=== PATIENT | female | born 1975 | race Caucasian/White ===

== ENCOUNTER 2018-03-22 10:35 | Outpatient (CLI) | payer BC | END 2018-03-22 10:36 | disposition home or self-care (01) | LOC: BICMAMMO 10:35 | PROVIDERS: ATTEND Obstetrics & Gynecology | DX: Z12.31 Encounter for screening mammogram for malignant neoplasm of breast (principal); Z80.3 Family history of malignant neoplasm of breast | CPT/HCPCS: 77063; 77067 ==

== ENCOUNTER 2020-04-20 07:18 | Outpatient (CLI) | payer BC, OTHER ==
[2020-04-20 18:03] LABS: BHCG - Serum Negative (NEGATIVE); Pregs Control Background? CLEAR/WHITE (CLR/WHITE); Pregs Control Bar Appear? YES (CONTROL BAR)
[2020-04-21 14:54] LABS: SARS-CoV-2 MS2 Positive; SARS-CoV-2 N Gene Negative; SARS-CoV-2 S Gene Negative; SARS-CoV-2 by NAA Not Detected (NotDetected); SARS-CoV-2 orf1ab Negative
== END 2020-04-20 07:19 | disposition home or self-care (01) ==
LOC: LABBT 07:18
PROVIDERS: ATTEND Otolaryngology Plastic Surgery within the Head & Neck
DX: Z01.812 Encounter for preprocedural laboratory examination (principal); Z20.828 Contact with and (suspected) exposure to other viral communicable diseases; J32.9 Chronic sinusitis, unspecified; J32.0 Chronic maxillary sinusitis; J32.3 Chronic sphenoidal sinusitis; J32.2 Chronic ethmoidal sinusitis; J32.1 Chronic frontal sinusitis; J34.3 Hypertrophy of nasal turbinates; J33.9 Nasal polyp, unspecified
CPT/HCPCS: 84703; 85014; 87635; U0003

== ENCOUNTER 2020-04-25 06:02 | Day surgery (SDC) | payer BC ==
[2020-04-23 10:00] VITALS: BMI 21.6
[2020-04-25] MEDS ORDERED: AFRIN NASAL MIST 15 ML BOT ONE ×2 (06:26→06:46)
[2020-04-25] MEDS ORDERED: Lidocaine 1% w/Epinephrine 1:100K 20 ML VIAL ONE (06:46)
[2020-04-25] MEDS ORDERED: Fentanyl 100 MCG/2 ML VIAL ONE ×3 (06:55→09:03)
[2020-04-25] MEDS ORDERED: Dexmedetomidine 200 MCG/2 ML VIAL ONE (06:55)
[2020-04-25] MEDS ORDERED: Midazolam HCl 2 mg/2 ml Vial ONE (07:22)
[2020-04-25] MEDS ORDERED: cefTRIAXone\\ROCEPHIN 1 GM VIAL ONE (09:00)
[2020-04-25] MEDS ORDERED: Sodium Chloride 0.9% 100 ML ONE (09:01)
[2020-04-25] MEDS ORDERED: Ibuprofen 800 MG TAB PO SCH (10:15)
[2020-04-25] MEDS ORDERED: PROPOFOL 200 MG/20 ML VIAL ONE (11:05)
[2020-04-25] MEDS ORDERED: Rocuronium Bromide 10 MG/ML (10ML VIAL) ONE (11:05)
[2020-04-25] MEDS ORDERED: Glycopyrrolate 0.2 MG/ML 5 ML SYRINGE ONE (11:05)
[2020-04-25] MEDS ORDERED: Ondansetron PF 4 MG/2 ML Vial ONE (11:05)
[2020-04-25] MEDS ORDERED: Succinylcholine Chloride 20 MG/ML 10 ml SYRINGE FS ONE (11:05)
[2020-04-25] MEDS ORDERED: Dexamethasone 20 MG/5 ML VIAL ONE (11:05)
[2020-04-25] MEDS ORDERED: Lidocaine 1% PF 5 ML VIAL ONE (11:05)
--- NOTE | 2020-04-26 12:47 | OP ---
DATE OF PROCEDURE: 04/25/2020 PREOPERATIVE DIAGNOSES: 1. Chronic pansinusitis. 2. Nasal polyposis. 3. Bilateral inferior turbinate hypertrophy. 4. Nasal obstruction. POSTOPERATIVE DIAGNOSES: 1. Chronic pansinusitis. 2. Nasal polyposis. 3. Bilateral inferior turbinate hypertrophy. 4. Nasal obstruction. PROCEDURES PERFORMED: 1. Bilateral endoscopic sinus surgery, total ethmoidectomies and sphenoidotomies including removal of tissue. 2. Bilateral endoscopic sinus surgery, maxillary antrostomies with removal of tissue. 3. Bilateral endoscopic sinus surgery, frontal sinus exploration. 4. Bilateral inferior turbinate submucosal resection. 5. [employer] image-guided surgery. ESTIMATED BLOOD LOSS: 50 mL. COMPLICATIONS: None. ANESTHESIA: GETA. DESCRIPTION OF PROCEDURE: The patient was taken to the operating room and placed supine on the table. General endotracheal anesthesia was obtained by the Anesthesia Staff. Tube was secured in the left lower lip. The patient was placed in a beach-chair position, and the [employer] image-guided cranial based surgery system was set up and calibrated. It was noted to be within 1 mm of accuracy. Following this, the patient was prepped and draped for standard nasal procedures, and Afrin pledgets were then removed from the nasal cavity. The 0-degree endoscope was used to guide a 27-gauge needle with 1% lidocaine and 1:100,000 epinephrine to be injected into the inferior turbinates, middle turbinates, and lateral nasal alexandre bilaterally. Following this, the middle turbinates were gently medialized with a [place]ster elevator. The uncinate process was then anteriorly fractured using a ball-ended probe bilaterally and the uncinate process was removed using the 0-degree microdebrider, curved microdebrider, and up-biting Blakesley forceps. Following this, the natural maxillary sinus ostia, which was completely swollen and obstructed due to inflammatory changes, polyps, and purulence was identified using a ball-ended probe bilaterally. Using the curved microdebrider blade and straight Blakesley forceps, maxillary ostia was widened bilaterally. Nasal polyps were removed from the inside of the maxillary sinus as well as significant amount of purulent debris. Following this, the ethmoidal bulla was identified and was punctured on its medial and inferior aspect using the 0-degree microdebrider blade, and ethmoidal bulla was removed bilaterally. Following this, the grand lamella was identified and was punctured into the posterior ethmoidal cells. Working from posterior to anterior, ethmoidal cells were opened in a mucosal sparing technique. Following this, nasal polyps and purulent debris were removed from the posterior ethmoidal cells and anterior ethmoidal cells using up-biting Blakesley forceps and a 0-degree microdebrider. Following this, the anterior wall of the sphenoid sinus was identified under image-guided surgical techniques and a sphenoidotomy was created using the 0-degree microdebrider under image guidance. The sphenoidotomies were then widened in a medial and inferior direction bilaterally using 0-degree microdebrider. Nasal polyps and purulence were removed from the sphenoid sinuses bilaterally. Following this, a 45-degree endoscope along with the 40-degree microdebrider blade under image guidance surveillance was used to identify the frontal sinus recess and frontal sinus ostia bilaterally. This area was opened using the 40-degree microdebrider blade by removing tissue. Following this, inferior turbinates were punctured on the anterior and inferior aspect, and submucosal resection was performed of the anterior and inferior portions of the inferior turbinates bilaterally. Following this, the nasal cavity was irrigated and a curved suction along with a 20 mL syringe was used to irrigate the maxillary sinuses. Upon irrigation of the right maxillary sinus it was noted that there was some mild periorbital infiltration of the irrigation. Gentle massage released the pressure. The image-guided system and 0-degree and 45-degree endoscope were then used to thoroughly inspect the lamina papyracea on this right side. There were no obvious defects. There was no bleeding. There was no evidence of orbital hemorrhage. It was thought that the bone of the maxillary sinus was markedly atrophic and then secondary to the chronic inflammation and polyps that were present. The patient was awakened from anesthesia and taken to the recovery room. Vision was intact fully bilaterally, and there was no continuation or progression of the periorbital . The patient tolerated the procedure well. Job ID: [id number]
== END 2020-04-25 11:05 | disposition home or self-care (01) ==
LOC: SDC 06:02
PROVIDERS: ATTEND Otolaryngology Plastic Surgery within the Head & Neck
PROC: 09BV8ZZ Excision of Left Ethmoid Sinus, Via Natural or Artificial Opening Endoscopic (ICD-10-PCS; principal; 2020-04-25)
PROC: 099R8ZZ Drainage of Left Maxillary Sinus, Via Natural or Artificial Opening Endoscopic (ICD-10-PCS; principal; 2020-04-25)
PROC: 099Q8ZZ Drainage of Right Maxillary Sinus, Via Natural or Artificial Opening Endoscopic (ICD-10-PCS; principal; 2020-04-25)
PROC: 09BS8ZZ Excision of Right Frontal Sinus, Via Natural or Artificial Opening Endoscopic (ICD-10-PCS; principal; 2020-04-25)
PROC: 09BU8ZZ Excision of Right Ethmoid Sinus, Via Natural or Artificial Opening Endoscopic (ICD-10-PCS; principal; 2020-04-25)
PROC: 09BT8ZZ Excision of Left Frontal Sinus, Via Natural or Artificial Opening Endoscopic (ICD-10-PCS; principal; 2020-04-25)
PROC: 09BL8ZZ Excision of Nasal Turbinate, Via Natural or Artificial Opening Endoscopic (ICD-10-PCS; principal; 2020-04-25)
PROC: 09CX8ZZ Extirpation of Matter from Left Sphenoid Sinus, Via Natural or Artificial Opening Endoscopic (ICD-10-PCS; principal; 2020-04-25)
PROC: 09CW8ZZ Extirpation of Matter from Right Sphenoid Sinus, Via Natural or Artificial Opening Endoscopic (ICD-10-PCS; principal; 2020-04-25)
PROC: 8E09XBZ Computer Assisted Procedure of Head and Neck Region (ICD-10-PCS; principal; 2020-04-25)
DX: J32.4 Chronic pansinusitis (principal); J34.3 Hypertrophy of nasal turbinates; J33.0 Polyp of nasal cavity; J34.89 Other specified disorders of nose and nasal sinuses; J33.9 Nasal polyp, unspecified; J30.9 Allergic rhinitis, unspecified; E03.9 Hypothyroidism, unspecified; Z79.899 Other long term (current) drug therapy; Z87.891 Personal history of nicotine dependence; Z88.6 Allergy status to analgesic agent
CPT/HCPCS: 87070; 87205; J0696; J1100; J2250; J2405; J2704; J3010; J3490

== ENCOUNTER 2021-05-13 08:42 | Outpatient (CLI) | payer BC | END 2021-05-13 08:43 | disposition home or self-care (01) | LOC: BICMAMMO 08:42 | PROVIDERS: ATTEND Obstetrics & Gynecology | DX: Z12.31 Encounter for screening mammogram for malignant neoplasm of breast (principal); Z80.3 Family history of malignant neoplasm of breast | CPT/HCPCS: 77063; 77067 ==

== ENCOUNTER 2024-02-01 10:37 | Outpatient (CLI) | payer BC | END 2024-02-01 10:38 | disposition home or self-care (01) | LOC: BICMAMMO 10:37 | PROVIDERS: ATTEND Family Medicine | DX: Z12.31 Encounter for screening mammogram for malignant neoplasm of breast (principal); Z80.3 Family history of malignant neoplasm of breast; Z98.82 Breast implant status | CPT/HCPCS: 77063; 77067 ==

== ENCOUNTER 2025-06-12 07:48 | Outpatient (CLI) | payer BC | END 2025-06-12 07:49 | disposition home or self-care (01) | LOC: BICMAMMO 07:48 | PROVIDERS: ATTEND Family Medicine | DX: Z13.820 Encounter for screening for osteoporosis (principal) | CPT/HCPCS: 77080 ==